=== PATIENT | male | born 1955 | race Caucasian/White ===

== ENCOUNTER 2019-07-30 10:49 | Emergency (ER) | payer OTHER ==
[~2019-07-30] VITALS: Ht 177.8 cm; Wt 72.6 kg
[~2019-07-30 10:49] MED LIST: ALLO100 PO; ATOR10; ATOR40TA PO; Antivert25 MG PO; Ativan1 MG PO; CHOLESTEROL MED; CLOP75 PO; DIAZ5 PO; Depo-Testo100 MG/1 M IM; Flomax0.4 MG PO; HYDMOR2 PO; LEVSOD50 PO; LEVSOD75 PO; LISI5 PO; Norco 5-325 Ta1 EACH PO; PROM25 PO; Percocet 5-3251 EACH PO; Roxicodone5 MG PO; TESTONE CI200 MG/1 M IM; THYR60; Vibramycin100 MG PO; [UNRECOGNIZED DRUG - REMARK]
[2019-07-30 11:28] LABS: BASOPHILS ABSOLUTE AUTO 0.07 K/mm3 (0.00-0.23); BASOPHILS PERCENT AUTO 1 % (0-2); EOSINOPHILS ABSOLUTE AUTO 0.34 K/mm3 (0.00-0.68); EOSINOPHILS PERCENT AUTO 3 % (0-6); Hemoglobin 18.7 g/dL (13.5-17.5); IMMATURE GRAN ABSOLUTE AUTO 0.08 K/mm3 (0.00-0.10); IMMATURE GRAN PERCENT AUTO 1 % (0-1); LYMPHOCYTES ABSOLUTE AUTO 2.91 K/mm3 (0.84-5.20); LYMPHOCYTES PERCENT AUTO 27 % (21-46); MONOCYTES ABSOLUTE AUTO 0.69 K/mm3 (0.16-1.47); MONOCYTES PERCENT AUTO 6 % (4-13); Mean Corpuscular HGB 30.3 pg (26.0-34.0); Mean Corpuscular HGB Conc 33.4 g/dL (31.5-36.5); Mean Corpuscular Volume 91 fL (80-100); Mean Platelet Volume 9.8 fL (9.1-12.4); NEUTROPHILS ABSOLUTE AUTO 6.84 K/mm3 (1.96-9.15); NEUTROPHILS PERCENT AUTO 63 % (41-73); Platelet Count 214 K/mm3 (150-400); RDW Coefficient Variation 13.3 % (11.7-14.2); RDW Standard Deviation 44.5 fL (35.1-46.3); Red Blood Cell Count 6.18 M/mm3 (4.30-5.90); White Blood Cell Count 10.93 K/mm3 (4.00-11.30)
[2019-07-30 11:49] LABS: Albumin, Blood 3.9 g/dL (3.4-5.0); Bilirubin, Total 0.5 mg/dL (0.1-1.0); Bun/Creatinine Ratio 18.3 (12.0-20.0); Calcium, Blood 9.2 mg/dL (8.5-10.1); Creatinine, Blood 1.64 mg/dL (0.60-1.20); Globulin, Blood 4.1 g/dL (2.2-4.0); Potassium, Blood 4.3 mmol/L (3.5-5.5)
== END 2019-07-30 13:36 | disposition home or self-care (01) ==
LOC: ER 10:49
PROVIDERS: Emergency Medicine
DX: R10.32 Left lower quadrant pain (principal); F32.9 Major depressive disorder, single episode, unspecified; I25.10 Atherosclerotic heart disease of native coronary artery without angina pectoris; M19.90 Unspecified osteoarthritis, unspecified site; Z86.19 Personal history of other infectious and parasitic diseases; Z87.442 Personal history of urinary calculi; Z88.6 Allergy status to analgesic agent; Z87.891 Personal history of nicotine dependence
CPT/HCPCS: 36415; 74177; 80053; 85025; 99284-25; Q9967

== ENCOUNTER 2021-04-08 17:12 | Day surgery (SDC) | payer MEDICARE, OTHER ==
[~2021-04-08] VITALS: Ht 177.8 cm; Wt 70.3 kg
[2021-04-08 17:46] LABS: BASOPHILS ABSOLUTE AUTO 0.05 K/mm3 (0.00-0.23); BASOPHILS PERCENT AUTO 0 % (0-2); EOSINOPHILS ABSOLUTE AUTO 0.24 K/mm3 (0.00-0.68); EOSINOPHILS PERCENT AUTO 2 % (0-6); Hematocrit 49.6 % (37.0-53.0); Hemoglobin 16.7 g/dL (13.5-17.5); IMMATURE GRAN ABSOLUTE AUTO 0.06 K/mm3 (0.00-0.10); IMMATURE GRAN PERCENT AUTO 0 % (0-1); LYMPHOCYTES ABSOLUTE AUTO 4.05 K/mm3 (0.84-5.20); LYMPHOCYTES PERCENT AUTO 28 % (21-46); MONOCYTES ABSOLUTE AUTO 0.88 K/mm3 (0.16-1.47); MONOCYTES PERCENT AUTO 6 % (4-13); Mean Corpuscular HGB Conc 33.7 g/dL (31.5-36.5); Mean Corpuscular Volume 89 fL (80-100); Mean Platelet Volume 9.7 fL (9.1-12.4); NEUTROPHILS ABSOLUTE AUTO 9.19 K/mm3 (1.96-9.15); NEUTROPHILS PERCENT AUTO 64 % (41-73); Platelet Count 228 K/mm3 (150-400); RDW Coefficient Variation 13.3 % (11.7-14.2); RDW Standard Deviation 43.5 fL (35.1-46.3); Red Blood Cell Count 5.57 M/mm3 (4.30-5.90); White Blood Cell Count 14.47 K/mm3 (4.00-11.30)
[2021-04-08] MEDS ORDERED: DEPO-TESTO200 MG/1 M IM (17:53)
[2021-04-08] MEDS ORDERED: EUTHYROX150 MC1 PO (17:53)
[2021-04-08 18:10] LABS: Albumin, Blood 3.7 g/dL (3.4-5.0); Albumin/Globulin Ratio 0.9 (0.8-1.8); Bilirubin, Total 0.2 mg/dL (0.1-1.0); Bun/Creatinine Ratio 13.4 (12.0-20.0); Calcium, Blood 8.6 mg/dL (8.5-10.1); Creatinine, Blood 2.09 mg/dL (0.60-1.20); Potassium, Blood 3.8 mmol/L (3.5-5.5); Total Protein, Blood 7.7 g/dL (6.4-8.2)
[2021-04-08 18:21] LABS: Troponin I 1.46 ng/mL (0.000-0.040)
--- NOTE | 2021-04-08 19:36 | NUR ---
ASSUMED CARE AT 1920 PT ARRIVED IN ICU FROM [facility] [place] WITH TR BAND PLACED ON RT WRIST WITH IMMOBILIZER IN PLACE. SKIN AT SITE C/D/I WITH NO BLEEDING OR SWELLING. RT HAND COOL TO TOUCH WITH FAINT RADIAL AND ULNAR PULSES PRESENT. PT LYING IN BED TALKING WITH STAFF ABOUT CARE RECIEVED AND PLAN TO TRANSFER TO [facility] FOR CARDIAC STENTING. PT VERBALIZED NOT WANTING TO FOLLOW THIS PLAN OF CARE SUGGESTED BY ROLL BUILDER; PT STATING THAT HE DOESN'T TRUST THIS ROLL BUILDER AND STATES THAT DR. OATES IS THE ONLY "GOOD" ROLL BUILDER THAT WOULD HAVE AGREED TO STENT HIM HERE. PT COMPLAINING OF CP X 5 DAYS, ATTEMPTED TO EDUCATE ON RELATION OF CP AND CARDIAC DISEASE. PT BECAME VERBALLY AGGRESSIVE STATING THAT HE "UNDERSTOOD". PT WAS NONCOMPLIANT W/ RT WRIST RESTRICTIONS BY PLACING WEIGHT ON THAT HAND/WRIST TO SHIFT HIMSELF IN BED. PT REQUESTED THAT ICU STAFF LEAVE THE ROOM. ADMISSION ASSESSMENT NOT COMPLETED AT THIS TIME D/T PT REFUSING CARE. PT REFUSING LABS, SO ALL LABS WERE CANCELLED. PT REMOVED BP CUFF AND IS NOW REFUSING VITAL SIGNS, BUT REMAINS ON SOLID PLASTERER AT THIS TIME. WILL CONTINUE TO ATTEMPT REASSESSMENT OF RT RADIAL SITE PT WILL ALLOW.
--- NOTE | 2021-04-08 19:59 | NUR ---
PT SITTING UP IN BED TAKING OFF HEART MONITOR LEADS. MANAGER LSW ATTEMPTED TO REAPPROACH AND PT ASKED THAT SHE "GO AWAY". CONTINUES TO TEAR THINGS OFF
--- NOTE | 2021-04-08 20:01 | NUR ---
PT IS UP IN BED GRABBING HIS BELONGINGS. PACING IN ROOM. SECURITY CALLED
--- NOTE | 2021-04-08 20:11 | NUR ---
PT WALKED OUTSIDE OF ROOM. PT STATING HE WANTED TO GO HOME. SECURITY ARRIVED TO UNIT. PT REQUESTING TO USE THE RESTROOM. HE WAS ADVISED THAT THERE WAS A BATHROOM IN HIS ROOM. AT THIS POINT HE YELLED AND STATED "I DON'T WANT TO USE THAT FUCKING BATHROOM. I WANT SOME GOD DAMN PRIVACY." HE THEN LEFT THE UNIT. SECURITY FOLLOWED. PT ENDED UP UTILIZING THE PUBLIC RESTROOM AT THE END OF THE [place] NEAR THE ICU WAITING ROOM. SECURITY ESCORTED BACK TO ICU WHERE HE IS NOW SITTING IN HIS ROOM. DR. HART CALLED TO GIVE AN UPDATE REGARDING PT'S BEHAVIORS AND WANTING TO LEAVE AMA. AT THIS POINT DR. HART STATED THAT THERE WASN'T ANYTHING WE COULD DO OTHER THAN ENCOURAGE HIM TO STAY TO REMOVE TR BAND SAFELY; HOWEVER, IF PT LEFT AMA WITH TR BAND IN PLACE THEN PT IS COMPLETELY ALERT AND ORIENTED TO MAKE THAT DECISION FOR HIMSELF.
--- NOTE | 2021-04-08 21:00 | NUR ---
TR BAND ATTEMPTED TO RELEASE AIR FROM TR BAND TO RIGHT RADIAL SITE. RELEASED 2 CC OF AIR AT 2040. ATTEMPTED TO RELEASE ANOTHER 3CC OF AIR AFTER 15 MINUTES AND SITE STARTED TO OOZE WITH SMALL HEMATOMA NOTED. INSERTED 5CC OF AIR BACK INTO TR BAND. ASKED PT IF HE WANTED TO TAKE HIS MEDICATIONS; HE STATED YES. ADMINISTERED LIPITOR PER ORDERS. PT THEN REQUESTED SUBLINGUAL NITRO D/T CHEST PAIN, WHICH WAS ADMINISTERED.
[2021-04-08] MEDS ORDERED: Isosorbide Mono30 MG PO (21:44)
[2021-04-08] MEDS ORDERED: CLOP75 PO (21:44)
[2021-04-08] MEDS ORDERED: ASPIR 8181 M1 PO (21:44)
[2021-04-08] MEDS ORDERED: NITR.4SL SL (21:45)
[2021-04-08] MEDS ORDERED: NORVASC5 MG PO (21:47)
[2021-04-08] MEDS ORDERED: ATOR80 PO (21:48)
--- NOTE | 2021-04-08 22:29 | NUR ---
UPDATE ON CONDITION/DISCHARGE CONTINUED TO RELEASE AIR FROM TR BAND ALLOWED IN ORDER TO GET PT DISCHARGED HOME PER HIS REQUEST. WHILE WAITING FOR REMOVAL OF TR BAND; PT WAS NOTED TO BE PACING IN ROOM, AND WAS SEEN WANDERING OUTSIDE OF HIS ROOM AND LOOKING INTO OTHER PT'S ROOMS. PT WAS ADVISED THAT HE IS NOT ALLOWED TO WANDER AND LOOK INTO OTHER PT'S ROOM D/T OTHER PT'S RIGHTS TO PRIVACY. PT STATED THAT HE "DIDN'T KNOW THAT", AND HE RETURNED TO HIS ROOM WITHOUT FURTHER ISSUE. PT STILL REFUSING VITAL SIGNS AND TO BE ON LIVERY CAR DRIVER AT THIS TIME. CALL MADE TO GROCERY STOCK CLERK STAFF REGARDING DISCHARGE MEDICATIONS AND DISCHARGE INSTRUCTIONS. DISCHARGE PAPERWORK TYPED UP WHILE STILL REASSESSING RIGHT RADIAL SITE ON AN ONGOING BASIS. SITE REMAINED STABLE WITH NO FURTHER OOZING OR HEMATOMA. AFTER DISCHARGE PAPERWORK WAS DISCUSSED WITH PT, STRESSING SITE CARE AND THE NEED FOR FOLLOW UP CARDIOLOGY CARES SECONDARY TO SEVERE CORONARY ARTERY DISEASE, TR BAND WAS REMOVED. THE SITE WAS CLEANSED WITH CHLORAPREP, SENTHIL DRESSING APPLIED, COVERED WITH A TEGADERM, AND A PRESSURE DRESSING WAS APPLIED WITH A STACK OF 2X2 GAUZES, FOLDED IN HALF, AND WRAPPED WITH COBAN. INSTRUCTED PT ON WHAT TO DO IF SITE STARTED TO BLEED. APPLIED IMMOBILIZER TO RIGHT WRIST AND INSTRUCTED PT NOT TO BEAR ANY WEIGHT TO THAT HAND/WRIST, WELL NO BENDING, FLEXING, PUSHING, OR PULLING. PT VERBALIZED UNDERSTANDING. ALSO ADVISED PT NOT TO DRIVE OR OPERATE HEAVY MACHINERY; HOWEVER, PT VERBALIZED HE WOULD BE DRIVING HOME DESPITE DISCHARGE INSTRUCTIONS ADVISING OTHERWISE. SITE WAS STABLE UPON DISCHARGE WITH NO OOZING NOTED. HEMATOMA FROM EARLIER ATTEMPT OF TR BAND REMOVAL WAS UNCHANGED AT 3-5CM. PT SIGNED BOTH DISCHARGE AND AMA PAPERWORK SINCE HE WAS DISCHARGING AGAINST MEDICAL ADVICE. MEDICATIONS FAXED TO [facility] IN [place]. PT WAS ESCORTED TO ADMITTING ENTRANCE WHERE HE THEN EXITED WITH NO FURTHER ISSUES.
--- NOTE | 2021-04-09 03:47 | NUR ---
TRIMMING CUTTER DOCUMENTATION REVIEW I HAVE READ "ASSUMED CARE NOTE" ENTERED BY STUDENT NURSE BEL
== END 2021-04-08 22:15 | disposition left against medical advice (07) ==
LOC: ER 17:12 → ICUW 17:46 → ER 17:46 → ICUE 19:11 → ICUW 19:11 → MHTC 19:36 → ICUE 22:15
PROVIDERS: Physician Assistant
PROC: 4A023N7 Measurement of Cardiac Sampling and Pressure, Left Heart, Percutaneous Approach (ICD-10-PCS; principal; 2021-04-08)
PROC: B2111ZZ Fluoroscopy of Multiple Coronary Arteries using Low Osmolar Contrast (ICD-10-PCS; 2021-04-08)
PROC: B2151ZZ Fluoroscopy of Left Heart using Low Osmolar Contrast (ICD-10-PCS; 2021-04-08)
DX: I21.09 ST elevation (STEMI) myocardial infarction involving other coronary artery of anterior wall (principal); I25.10 Atherosclerotic heart disease of native coronary artery without angina pectoris; M19.90 Unspecified osteoarthritis, unspecified site; G89.29 Other chronic pain; M25.522 Pain in left elbow; F17.220 Nicotine dependence, chewing tobacco, uncomplicated; N18.9 Chronic kidney disease, unspecified; F32.9 Major depressive disorder, single episode, unspecified; R45.1 Restlessness and agitation; Z53.29 Procedure and treatment not carried out because of patient's decision for other reasons; Z95.5 Presence of coronary angioplasty implant and graft; Z87.442 Personal history of urinary calculi; Z86.19 Personal history of other infectious and parasitic diseases; Z88.5 Allergy status to narcotic agent; Z79.899 Other long term (current) drug therapy
CPT/HCPCS: 36415; 76937; 80053; 84484; 85025; 85347; 93005; 93010; 93458; 96374-59; 99285-25; A9270; C1769; C1887; G0480; J0360; J1644; J2250; J3010; J7030; Q9967